=== PATIENT | male | born 1965 | race Hispanic/Latino ===

== ENCOUNTER 2016-11-09 09:35 | Emergency (ER) | payer MEDICARE ==
[2016-11-09 09:55] VITALS: BP 134/98; PULSE 99; RESP 19; TEMP 98.5; O2SAT 96; BMI 28.5
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
--- NOTE | 2016-11-09 12:35 | RAD ---
PROCEDURE: Radiographs of the Right Shoulder HISTORY: rt. shoulder pain x 2 weeks COMPARISON: No prior. FINDINGS: BONES: Normal. No fracture. JOINTS: Moderate to severe degenerative changes are seen in the acromioclavicular joint. SOFT TISSUES: Normal. OTHER FINDINGS: None. IMPRESSION: Moderate to severe degenerative changes in the acromioclavicular joint
--- NOTE | 2016-11-09 12:40 | RAD ---
PROCEDURE: Radiographs of the right humerus. HISTORY: rt. humerus pain x 2 weeks COMPARISON: None. FINDINGS: BONES: Normal. No fracture or focal lesion. SOFT TISSUES: Normal. OTHER FINDINGS: None. IMPRESSION: Normal radiographs of right humerus.
--- NOTE | 2016-11-09 13:13 | US ---
PROCEDURE: Right upper extremity venous US CLINICAL HISTORY: Arm pain and swelling Evaluate for deep venous thrombosis. PHYSICIAN(S): Ilan Branham M.D FINDINGS: The visualized rightinternal jugular vein is sonographically normal and compressible. No evidence of obstruction or thrombus is seen. The visualized segments of the right subclavian vein are patent with normal waveforms. No sonographic evidence of obstruction or thrombosis is seen. The visualized deep venous system of the proximal right upper extremity is sonographically normal and compressible. IMPRESSION: 1. No sonographic evidence for deep venous thrombosis in the visualized segments of the right upper extremity.
== END 2016-11-09 11:32 | disposition home or self-care (01) ==
LOC: ED 09:35
DX: M66.821 Spontaneous rupture of other tendons, right upper arm (principal); M19.011 Primary osteoarthritis, right shoulder; I10 Essential (primary) hypertension

== ENCOUNTER 2017-01-14 18:46 | Emergency (ER) | payer MEDICARE ==
[2017-01-14 18:46] VITALS: BMI 26.4
[2017-01-14 19:09] VITALS: PULSE 91; RESP 18; TEMP 98.1; O2SAT 96
[2017-01-14 19:10] VITALS: BP 109/72
[2017-01-14] MEDS ORDERED: Tmp-Smz 800 mg-160 mg DS Tab PO STA (19:10)
[2017-01-14] MEDS ORDERED: Oxycodone/Acetaminophen 5/325 mg Tab PO STA (19:10)
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
== END 2017-01-14 19:48 | disposition home or self-care (01) ==
LOC: ED 18:46
DX: B02.9 Zoster without complications (principal)

== ENCOUNTER 2017-12-24 11:01 | Emergency (ER) | payer OTHER, MEDICARE ==
[2017-12-24 11:05] VITALS: BMI 27.1
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
[2017-12-24] MEDS ORDERED: TDAP Vaccine 0.5 mL Syr IM ONE (11:47)
[2017-12-24 11:59] LABS: BASO # 0.07 K/mm3 (0.0-2.0); BASO % 0.9 % (0.0-3.0); EOS # 0.3 (0.0-0.7); EOS % 3.3 % (1.5-5.0); GRAN # 4.03 (1.4-6.5); GRAN % 53.4 % (50.0-68.0); LYMPH # 2.3 (1.2-3.4); LYMPH % 30.9 % (22.0-35.0); MEAN CELL VOLUME 84.6 fl (80.0-105.0); MEAN CORPUSCULAR HGB CONC 35.5 g/dl (31.0-37.0); MONO # 0.9 (0.1-0.6); MONO % 11.5 % (1.0-6.0); RED CELL DISTRIBUTION WIDTH 14.8 % (11.5-14.5); WHITE BLOOD COUNT 7.6 10^3/ul (4.5-11.0)
[2017-12-24 12:05] LABS: INR 1.02; PARTIAL THROMBOPLASTIN TIME 31.2 Seconds (25.1-36.5); PROTHROMBIN TIME 11.7 SECONDS (9.4-12.5)
[2017-12-24 12:08] LABS: ALBUMIN 3.8 g/dL (3.0-4.8); CALCIUM 9.1 mg/dL (8.4-10.5)
--- NOTE | 2017-12-24 12:17 | CT ---
Date of service: 12/24/2017 PROCEDURE: CT HEAD WITHOUT CONTRAST. HISTORY: fall COMPARISON: None available. TECHNIQUE: Axial computed tomography images were obtained through the head/brain without intravenous contrast. Radiation dose: Total exam DLP = 1042 mGy-cm. This CT exam was performed using one or more of the following dose reduction techniques: Automated exposure control, adjustment of the mA and/or kV according to patient size, and/or use of iterative reconstruction technique. FINDINGS: HEMORRHAGE: No intracranial hemorrhage. BRAIN: No mass effect or edema. Chronic microvascular changes are seen in the subcortical white matter of both frontal lobes VENTRICLES: Unremarkable. No hydrocephalus. CALVARIUM: Unremarkable. PARANASAL SINUSES: Unremarkable as visualized. No significant inflammatory changes. MASTOID AIR CELLS: Unremarkable as visualized. No inflammatory changes. OTHER FINDINGS: None. IMPRESSION: No acute intracranial findings
--- NOTE | 2017-12-24 12:24 | CT ---
Date of service: 12/24/2017 PROCEDURE: CT Cervical Spine without contrast HISTORY: s/p fall COMPARISON: None available. TECHNIQUE: Axial computed tomography images were obtained of the cervical spine without the use of intravenous contrast. Coronal and sagittal reformatted images were created and reviewed. Radiation dose: Total exam DLP = 542 mGy-cm. This CT exam was performed using one or more of the following dose reduction techniques: Automated exposure control, adjustment of the mA and/or kV according to patient size, and/or use of iterative reconstruction technique. FINDINGS: VERTEBRAE: No fracture. Normal alignment. No destructive bony lesion. DISCS/SPINAL CANAL/NEURAL FORAMINA: Right-sided foraminal stenosis at C3-4. Right-sided foraminal stenosis at C5-6 and left-sided stenosis at C6-7. Disc space narrowing at C5-6 and C6-7 PARASPINAL SOFT TISSUES: Unremarkable. OTHER FINDINGS: None. IMPRESSION: No acute findings
[2017-12-24 13:57] VITALS: PULSE 75; TEMP 98
[2017-12-24 15:06] VITALS: BP 158/87; RESP 17; O2SAT 99
== END 2017-12-24 14:00 | disposition home or self-care (01) ==
LOC: ED 11:01
DX: S01.81XA Laceration without foreign body of other part of head, initial encounter (principal); S09.90XA Unspecified injury of head, initial encounter; W22.8XXA Striking against or struck by other objects, initial encounter; Y92.513 Shop (commercial) as the place of occurrence of the external cause; Y99.0 Civilian activity done for income or pay; I10 Essential (primary) hypertension; E11.9 Type 2 diabetes mellitus without complications; E78.5 Hyperlipidemia, unspecified; Z23 Encounter for immunization